=== PATIENT | male | born 1945 | race African-American/Black ===

== ENCOUNTER 2016-11-18 12:28 | Emergency (ER) | payer OTHER ==
[~2016-11-18] VITALS: Ht 165.1 cm; Wt 72.6 kg
[2016-11-18] MEDS ORDERED: KETOROLAC TROMETHAMINE 15 MG/ML VIAL ONE (12:48)
[2016-11-18 12:49] VITALS: BP 137/86
[2016-11-18] MEDS ORDERED: KETOROLAC TROMETHAMINE INJ 30 MG/ML VIAL IM ONE (13:00)
== END 2016-11-18 13:00 | disposition home or self-care (01) ==
LOC: ER 12:32
DX: G62.9 Polyneuropathy, unspecified (principal); M19.90 Unspecified osteoarthritis, unspecified site
CPT/HCPCS: 96372; 99283; A4606 ×2; J1885; Z7610